=== PATIENT | female | born 1975 | race Caucasian/White ===

== ENCOUNTER 2018-06-01 20:30 | Emergency (ER) | payer OTHER ==
[2018-06-01 20:39] VITALS: BP 144/65; PULSE 91; TEMP 99; BMI 29.2
--- NOTE | 2018-06-01 20:39 | PDOC ---
Rapid Medical Evaluation Time Seen by Provider: 06/01/18 20:36 Medical Evaluation: 06/01/18 20:36 Pt c/o: 150/100 this evening, took her bp meds, pt said she felt dizzy and SOB which now has resolved pt on brief exam: VSS, lcta, rrr, appears anxious pt ordered for: ekg pt to proceed to the ED Discharge Disposition - Diagnosis Blood pressure check - Referrals - Patient Instructions - Post Discharge Activity
[2018-06-01] MEDS ORDERED: KETOROLAC TROMETHAMINE 60 MG/2 ML VIAL IM ONE (21:06)
--- NOTE | 2018-06-01 21:10 | PDOC ---
History of Present Illness - General Chief Complaint: Chest Pain Stated Complaint: CHEST PAIN/HIGH BP Time Seen by Provider: 06/01/18 20:36 - History of Present Illness Initial Comments: 42-year-old female with 3 hours of atraumatic onset of left-sided chest pain. She states she took her blood pressure medicine because she felt her blood pressure was high and became slightly short of breath. Since her arrival in the emergency room her shortness of breath has resolved however she does continue to have left-sided chest pain. Her chest pain does not radiate. 06/01/18 21:08 Past History - Past Medical History Allergies/Adverse Reactions: Allergies Allergy/AdvReac Type Severity Reaction Status Date / Time No Known Allergies Allergy Verified 06/01/18 20:39 Home Medications: Ambulatory Orders Albuterol Sulfate [Proair Hfa] 8.5 gm IH ASDIR 06/01/18 Citalopram Hydrobromide [Celexa -] 20 mg PO DAILY 06/01/18 Losartan Potassium 25 mg PO ASDIR 06/01/18 Montelukast Na [Singulair -] 10 mg PO HS 06/01/18 NK [No Known Home Medication] 06/01/18 Asthma: Yes COPD: No HTN: Yes Psychiatric Problems: Yes (ANXIETY) - Suicide/Smoking/Psychosocial Hx Smoking History: Never smoked Review of Systems - Review of Systems Cardiac (ROS): Yes: Chest Pain *Physical Exam - Vital Signs Last Vital Signs Temp Pulse Resp BP Pulse Ox 99 F 91 H 18 144/65 100 06/01/18 20:34 06/01/18 20:34 06/01/18 20:34 06/01/18 20:34 06/01/18 20:34 - Physical Exam Comments: HEAD: NC/AT EYES: Conjuntiva clear NECK: Supple without adenopathy CARDIAC: S1 S2, there is left-sided costochondral tenderness in the areas of ribs 4 and 5 LUNGS: CTA Full and Equal breath sounds ABDOMEN: Soft NT ND MS: Full ROM in all joints without edema NEUROLOGIC: No gross sensory or motor deficits, NVID SKIN: Normal color and temperature no lesions or rashes 06/01/18 21:09 Medical Decision Making - Medical Decision Making Reviewed her EKG and vital signs she is not tachycardic I do not suspect a PE at this point her chest pain is very reproducible with palpation and is not exacerbated with deep breathing. I do not suspect an CO. I will treat her with Toradol and reevaluate her. 06/01/18 21:09 06/01/18 21:37 Symptoms improved after Toradol. *DC/Admit/Observation/Transfer Diagnosis at time of Disposition: Blood pressure check, Costochondral chest pain - Discharge Dispostion Disposition: HOME Condition at time of disposition: Improved Decision to Admit order: No - Referrals Referrals: Kalyan Downey [Non Staff, Medical] - - Patient Instructions Printed Discharge Instructions: Costochondritis, DI for Costochondritis Additional Instructions: Take Tylenol as directed for pain. Return to the emergency room should symptoms come back. Follow-up with the primary care physician Alis your own or the one I recommended for you in 2-3 days for further evaluation and treatment options. - Post Discharge Activity
[2018-06-01] MEDS ORDERED: KETOROLAC TROMETHAMINE 60 MG/2 ML VIAL ONE (21:12)
--- NOTE | 2018-06-02 15:56 | EKG ---
Test Reason : Blood Pressure : / mmHG Vent. Rate : 071 BPM Atrial Rate : 071 BPM P-R Int : 148 ms QRS Dur : 076 ms QT Int : 376 ms P-R-T Axes : 067 056 055 degrees QTc Int : 408 ms NORMAL SINUS RHYTHM SEPTAL INFARCT , AGE UNDETERMINED ABNORMAL ECG NO PREVIOUS ECGS AVAILABLE Confirmed by FRANCISCO BARNES MD ([id number]) on 06/02/2018 3:56:34 PM Referred By: Confirmed By:FRANCISCO BARNES MD
== END 2018-06-01 21:40 | disposition home or self-care (01) ==
LOC: JERFT 20:30
PROC: 3E0233Z Introduction of Anti-inflammatory into Muscle, Percutaneous Approach (ICD-10-PCS; principal; 2018-06-01)
DX: M94.0 Chondrocostal junction syndrome [Tietze] (principal); I10 Essential (primary) hypertension; J45.909 Unspecified asthma, uncomplicated; F41.9 Anxiety disorder, unspecified
CPT/HCPCS: 93005; 93010; 99281-25

== ENCOUNTER 2018-06-17 10:31 | Emergency (ER) | payer OTHER ==
[2018-06-17 10:42] VITALS: TEMP 98.7; BMI 28.3
--- NOTE | 2018-06-17 10:52 | PDOC ---
History of Present Illness - General Chief Complaint: Palpitations Stated Complaint: PALPITATIONS Time Seen by Provider: 06/17/18 10:49 History Source: Patient - History of Present Illness Presenting Symptoms: Other (this am) Timing/Duration: reports: changing over time Severity/Quality: reports: severe Past History - Past Medical History Allergies/Adverse Reactions: Allergies Allergy/AdvReac Type Severity Reaction Status Date / Time No Known Allergies Allergy Verified 06/17/18 10:42 Home Medications: Ambulatory Orders Albuterol Sulfate [Proair Hfa] 8.5 gm IH ASDIR 06/01/18 Citalopram Hydrobromide [Celexa -] 20 mg PO DAILY 06/01/18 Losartan Potassium 25 mg PO ASDIR 06/01/18 Montelukast Na [Singulair -] 10 mg PO HS 06/01/18 Asthma: Yes COPD: No HTN: Yes Psychiatric Problems: Yes (ANXIETY) - Suicide/Smoking/Psychosocial Hx Smoking History: Never smoked Hx Alcohol Use: No Drug/Substance Use Hx: No Review of Systems - Review of Systems Constitutional: Yes: Weakness. No: Chills, Fever Respiratory: Yes: Shortness of Breath. No: Wheezing Cardiac (ROS): Yes: Palpitations. No: Chest Pain ABD/GI: No: Nausea, Vomiting *Physical Exam - Vital Signs Last Vital Signs Temp Pulse Resp BP Pulse Ox 98.7 F 79 16 117/60 100 06/17/18 10:40 06/17/18 10:40 06/17/18 10:40 06/17/18 10:40 06/17/18 10:40 - Physical Exam General Appearance: Yes: Appropriately Dressed. No: Apparent Distress HEENT: positive: Normal Voice Neck: positive: Supple Respiratory/Chest: positive: Lungs Clear, Normal Breath Sounds. negative: Respiratory Distress Cardiovascular: positive: Regular Rate, S1, S2 Gastrointestinal/Abdominal: positive: Soft. negative: Tender Extremity: negative: Pedal Edema Integumentary: positive: Dry, Warm Neurologic: positive: Fully Oriented, Alert, Normal Mood/Affect ED Treatment Course - LABORATORY CBC & Chemistry Diagram: 06/17/18 11:50 06/17/18 12:25 - ADDITIONAL ORDERS Additional order review: Laboratory Results 06/17/18 06/17/18 12:25 11:25 Sodium 140 Potassium 4.0 Chloride 106 Carbon Dioxide 26 Anion Gap 8 BUN 15 Creatinine 0.7 Creat Clearance w eGFR > 60 Random Glucose 57 L Calcium 9.6 Total Bilirubin 1.1 H AST 11 L ALT 19 Alkaline Phosphatase 62 Creatine Kinase 102 Troponin I < 0.02 B-Natriuretic Peptide 15.9 Total Protein 7.5 Albumin 3.9 TSH 1.63 Serum , Qual Negative 06/17/18 11:50 RBC 4.22 MCV 95.5 MCHC 33.7 RDW 12.9 MPV 8.8 Neutrophils % 67.6 Lymphocytes % 21.1 Monocytes % 8.2 Eosinophils % 1.9 Basophils % 1.2 - RADIOLOGY Radiology Studies Ordered: Category Date Time Status CHEST PA & LAT [RAD] Stat Radiology 06/17/18 11:15 Taken Medical Decision Making - Medical Decision Making 06/17/18 10:51 42 yo F, h/o asthma, HTN, anxiety on celexa, here with palpitations and shortness of breath. Patient states this a.m. while walking to her car, became short of breath with palpitations and felt that she was given a pass out. States she then sat down, but when she got back up symptoms reoccurred, so decided to come to ED. States she now feels weak, but no longer short of breath or having palpitations. Patient states she has never had these symptoms before and that this is different from her anxiety, which usually presents with more "shaking all over" per patient. No known cardiac or thyroid issues. Of note, patient was seen in ED 2 weeks ago for chest pain with negative workup and was diagnosed with costochondritis. No chest pain currently and no diaphoresis, n/v. No known risk factors for DVT/PE See exam SOB w/ palpitations this am Since improved Stable in ER w/ unremarkable exam No obvious RF for DVT/PE and percs out No known cardiac issues and had neg w/u in ED 06/01 after p/w CP ?anxiety component -ekg -cxr -labs including TSH -anticipate dc w/ PMD f/u 06/17/18 11:15 06/17/18 13:32 EKG, CXR and labs unremarkable. On reassessment, patient is asymptomatic. Stable for discharge with PMD follow-up next week *DC/Admit/Observation/Transfer Diagnosis at time of Disposition: Palpitation - Discharge Dispostion Disposition: HOME Condition at time of disposition: Improved - Referrals Referrals: Griffin Razo MD [Staff Physician] - - Patient Instructions Printed Discharge Instructions: DI for Palpitations Additional Instructions: The cause of your symptoms are unclear at this time as your EKG, chest x-ray and labs were unremarkable. You will need to follow-up with Dr Razo of cardiology for further evaluation including a possible Holter monitor. Also follow-up with your PMD In the meantime, if symptoms recur and/or worsen, return to the ER - Post Discharge Activity
[2018-06-17 12:01] LABS: BASO % 1.2 % (0-2.0); EOS % 1.9 % (0-4.5); HEMATOCRIT 40.3 % (32.4-45.2); HEMOGLOBIN 13.6 GM/dL (10.7-15.3); LYMPH % 21.1 % (8-40); MCH 32.2 pg (25.7-33.7); MCHC 33.7 g/dl (32.0-36.0); MEAN CELL VOLUME 95.5 fl (80-96); MEAN PLT VOLUME 8.8 fl (7.5-11.1); MONO % 8.2 % (3.8-10.2); NEUT % 67.6 % (42.8-82.8); PLATELET COUNT 228 K/MM3 (134-434); RBC 4.22 M/mm3 (3.60-5.2); RDW 12.9 % (11.6-15.6); WHITE BLOOD COUNT 7.8 K/mm3 (4.0-10.0)
[2018-06-17 13:28] LABS: ALBUMIN 3.9 g/dl (3.4-5.0); ALK PHOS 62 U/L (45-117); ANION GAP 8 MMOL/L (8-16); BILIRUBIN,TOTAL 1.1 mg/dL (0.2-1); BLOOD UREA NITROGEN 15 mg/dL (7-18); CALCIUM 9.6 mg/dL (8.5-10.1); CHLORIDE 106 mmol/L (98-107); CO2 26 mmol/L (21-32); CREATININE 0.7 mg/dL (0.55-1.3); GLUCOSE,RANDOM 57 mg/dL (74-106); N-TERMINAL BNP 15.9 pg/ml (5-125); SGOT/AST 11 U/L (15-37); SGPT/ALT 19 U/L (13-61); SODIUM 140 mmol/L (136-145); TOT PROT 7.5 g/dl (6.4-8.2)
--- NOTE | 2018-06-17 14:33 | PDOC ---
*Physical Exam - Vital Signs Last Vital Signs Temp Pulse Resp BP Pulse Ox 98.7 F 79 16 117/60 100 06/17/18 10:40 06/17/18 10:40 06/17/18 10:40 06/17/18 10:40 06/17/18 10:40 - Physical Exam Comments: 06/19/18 02:45 42-year-old female presents to the ER complaining of short of breath/ palpitations and syncope sensation. No history of anxiety/ No thyroid issues. Patient was seen in the ER 2 weeks ago for chest pain Diagnosed with costochondritis Patient denies headache, dizziness, lightheadedness, chest pain, nausea/vomiting Labs: EKG, TSH, CBC, chemistry, chest x-ray Patient sent to the emergency department for a for evaluation ED Treatment Course - LABORATORY CBC & Chemistry Diagram: 06/17/18 11:50 06/17/18 12:25 - ADDITIONAL ORDERS Additional order review: Laboratory Results 06/17/18 06/17/18 12:25 11:25 Sodium 140 Potassium 4.0 Chloride 106 Carbon Dioxide 26 Anion Gap 8 BUN 15 Creatinine 0.7 Creat Clearance w eGFR > 60 Random Glucose 57 L Calcium 9.6 Total Bilirubin 1.1 H AST 11 L ALT 19 Alkaline Phosphatase 62 Creatine Kinase 102 Troponin I < 0.02 B-Natriuretic Peptide 15.9 Total Protein 7.5 Albumin 3.9 TSH 1.63 Serum , Qual Negative 06/17/18 11:50 RBC 4.22 MCV 95.5 MCHC 33.7 RDW 12.9 MPV 8.8 Neutrophils % 67.6 Lymphocytes % 21.1 Monocytes % 8.2 Eosinophils % 1.9 Basophils % 1.2 *DC/Admit/Observation/Transfer Diagnosis at time of Disposition: Palpitation - Discharge Dispostion Disposition: HOME Condition at time of disposition: Improved - Referrals Referrals: Griffin Razo MD [Staff Physician] - - Patient Instructions Printed Discharge Instructions: DI for Palpitations Additional Instructions: The cause of your symptoms are unclear at this time as your EKG, chest x-ray and labs were unremarkable. You will need to follow-up with Dr Razo of cardiology for further evaluation including a possible Holter monitor. Also follow-up with your PMD In the meantime, if symptoms recur and/or worsen, return to the ER - Post Discharge Activity Forms/Work/School Notes: Back to School
[2018-06-17 14:38] VITALS: BP 138/74; PULSE 71
--- NOTE | 2018-06-18 15:39 | EKG ---
Test Reason : Blood Pressure : / mmHG Vent. Rate : 068 BPM Atrial Rate : 068 BPM P-R Int : 142 ms QRS Dur : 084 ms QT Int : 362 ms P-R-T Axes : 064 059 057 degrees QTc Int : 384 ms NORMAL SINUS RHYTHM LOW VOLTAGE QRS BORDERLINE ECG WHEN COMPARED WITH ECG OF 01-JUN-2018 20:41, NO SIGNIFICANT CHANGE WAS FOUND Confirmed by MD Aparicio Daniel ([id number]) on 06/18/2018 3:39:23 PM Referred By: Confirmed By:Adrian Aparicio MD
== END 2018-06-17 14:40 | disposition home or self-care (01) ==
LOC: JER 10:31
DX: R00.2 Palpitations (principal); I10 Essential (primary) hypertension; J45.909 Unspecified asthma, uncomplicated; F41.9 Anxiety disorder, unspecified
CPT/HCPCS: 36415; 71046-TC-FY; 80053; 82550; 83880; 84443; 84484; 84703; 85025; 93005; 93010; 99283-25

== ENCOUNTER 2019-07-07 21:42 | Emergency (ER) | payer OTHER ==
[2019-07-07 22:02] VITALS: BP 148/85; PULSE 70; TEMP 98.2; BMI 30.7
[2019-07-08] MEDS ORDERED: MECLIZINE HCL 25 MG TABLET (FP) PO ONE (00:06)
--- NOTE | 2019-07-08 00:13 | PDOC ---
History of Present Illness - General History Source: Patient - History of Present Illness Initial Comments: 07/08/19 00:07 43 yo F PMH HTN, asthma, tubal ligation, anxiety, seizure disorder on Keppra and Topamax (last seizure 1 month ago), presenting with dizziness. Patient states that it began this afternoon, "room spinning", triggered by moving her head, lasting seconds at a time, associated with nausea without vomiting. States that she initially was unable to walk. Specifically states that this does not feel the same as her seizures. Further reports that she applied an ice pack to her forehead and now feels better. Specifically denies CP, SOB, abd pain, urinary symptoms, constipation/diarrhea, fevers/chills, ALTMAN. Patient initially stated that she wanted to leave without getting any testing, and repeatedly declares that she needs to be at work at 0700. However, she ultimately decided that she does want testing and lab work. LMP now. <Kristin Wright - Last Filed: 07/08/19 01:37> <Blank Hummel - Last Filed: 07/08/19 01:41> - General Chief Complaint: Pain Stated Complaint: NAUSEA/VOMITING Time Seen by Provider: 07/07/19 23:52 Past History - Past Medical History Asthma: Yes COPD: No HTN: Yes Psychiatric Problems: Yes (ANXIETY) - Immunization History Immunization Up to Date: No - Psycho Social/Smoking Cessation Hx Smoking History: Never smoked Information on smoking cessation initiated: No Hx Alcohol Use: No Drug/Substance Use Hx: No <Kristin Wright - Last Filed: 07/08/19 01:37> <Blank Hummel - Last Filed: 07/08/19 01:41> - Past Medical History Allergies/Adverse Reactions: Allergies Allergy/AdvReac Type Severity Reaction Status Date / Time No Known Allergies Allergy Verified 07/07/19 23:16 Home Medications: Ambulatory Orders Albuterol Sulfate [Proair Hfa] 8.5 gm IH ASDIR 06/01/18 Citalopram Hydrobromide [Celexa -] 20 mg PO DAILY 06/01/18 Losartan Potassium 25 mg PO ASDIR 06/01/18 Montelukast Na [Singulair -] 10 mg PO HS 06/01/18 Meclizine HCl 25 mg PO QID PRN 3 Days #12 tablet 07/08/19 *Physical Exam - Vital Signs Last Vital Signs Temp Pulse Resp BP Pulse Ox 98.2 F 70 17 148/85 100 07/07/19 21:58 07/07/19 21:58 07/07/19 21:58 07/07/19 21:58 07/07/19 21:58 - Physical Exam Comments: 07/08/19 00:11 Gen: NAD, well-developed, well-nourished Neuro: b/l horizontal nystagmus, EOMI, PERRLA, CN II-XII intact, FTN intact, AAOX4 HEENT: atraumatic, normocephalic Neck: supple, trachea midline CV: regular rate, regular rhythm Pulm: CTA b/l, no wheezing Abd: soft, non-distended, non-tender MSK: full ROM, intact pulses Extr: no edema, no deformities Skin: warm, dry <Kristin Wright - Last Filed: 07/08/19 01:37> - Vital Signs Last Vital Signs Temp Pulse Resp BP Pulse Ox 98.2 F 70 17 148/85 100 07/07/19 21:58 07/07/19 21:58 07/07/19 21:58 07/07/19 21:58 07/07/19 21:58 <Blank Hummel - Last Filed: 07/08/19 01:41> Heart Score/ECG Review #1 07/08/19 01:41 Twelve-lead EKG was performed and reviewed by me. Sinus bradycardia, rate 55. Normal axis and intervals. No ST elevations or T wave inversions. <Blank Hummel - Last Filed: 07/08/19 01:41> ED Treatment Course - LABORATORY CBC & Chemistry Diagram: 07/08/19 00:00 07/08/19 00:00 <Kristin Wright - Last Filed: 07/08/19 01:37> - LABORATORY CBC & Chemistry Diagram: 07/08/19 00:00 07/08/19 00:00 - ADDITIONAL ORDERS Additional order review: Laboratory Results 07/08/19 07/08/19 07/08/19 00:00 00:00 00:00 Sodium 142 Potassium 4.3 Chloride 107 Carbon Dioxide 30 Anion Gap 4 L BUN 10.4 Creatinine 0.8 Est GFR (CKD-EPI)AfAm 106.13 Est GFR (CKD-EPI)NonAf 91.57 Random Glucose 86 Calcium 8.9 Total Bilirubin 0.5 AST 22 ALT 21 Alkaline Phosphatase 78 Total Protein 7.0 Albumin 3.8 Urine Color Yellow Urine Appearance Clear Urine pH 6.5 Ur Specific [place] 1.008 L Urine Protein Negative Urine Glucose (UA) Negative Urine Ketones Negative Urine Blood 2+ H Urine Nitrite Negative Urine Bilirubin Negative Urine Urobilinogen 0.2 Ur Leukocyte Esterase Trace Urine WBC (Auto) 1 Urine RBC (Auto) 6 Urine Casts (Auto) 1 U Epithel Cells (Auto) 0.5 Urine Bacteria (Auto) 0.7 Urine HCG, Qual Negative 07/08/19 00:00 RBC 3.96 MCV 96.0 MCHC 33.2 RDW 12.6 MPV 9.3 Neutrophils % 68.3 Lymphocytes % 21.0 Monocytes % 5.9 Eosinophils % 3.6 D Basophils % 1.2 - Medications Given in the ED: ED Medications Discontinued Medications Generic Name Dose Route Start Last Admin Trade Name Johnieq PRN Reason Stop Dose Admin Meclizine HCl 25 mg 07/08/19 00:06 07/08/19 00:31 Antivert - PO 07/08/19 00:07 25 mg ONCE ONE Administration <Blank Hummel - Last Filed: 07/08/19 01:41> Medical Decision Making - Medical Decision Making 07/08/19 00:14 Concerning for BPPV v UTI. - CBC - CMP - UA/UC - upreg - meclizine 25 po - reassess - likely dc home with short course of meclizine 07/08/19 00:45 Patient reassessed, feeling much better. EKG sinus bradycardia 55. 07/08/19 01:30 CMP wnl. Will dc with short course of meclizine. <Kristin Wright - Last Filed: 07/08/19 01:37> Discharge - Discharge Information Problems reviewed: Yes - Admission No <Kristin Wright - Last Filed: 07/08/19 01:37> <Blank Hummel - Last Filed: 07/08/19 01:41> - Discharge Information Clinical Impression/Diagnosis: Vertigo Condition: Improved Disposition: HOME - Additional Discharge Information Prescriptions: Meclizine HCl 25 mg PO QID PRN 3 Days #12 tablet PRN Reason: Nausea And/Or Vomiting - Patient Discharge Instructions Patient Printed Discharge Instructions: DI for Benign Paroxysmal Positional Vertigo Additional Instructions: You were seen with dizziness. Your labs and EKG were unconcerning, and your physical exam was consistent with vertigo. You also felt better with meclizine. Please take meclizine every 6 hours as needed for dizziness. Follow up with your primary care doctor within one week. Also, make an appointment with your neurologist within 1-2 weeks. Make sure you take your Keppra as prescribed. Return to the ED if you develop worsening dizziness or weakness or any new, worsening, or concerning symptoms. - Post Discharge Activity Work/Back to School Note: Back to Work
[2019-07-08] MEDS ORDERED: MECLIZINE HCL 25 MG TABLET (FP) ONE (00:23)
[2019-07-08 00:53] LABS: EPI CELLS 0.5 /HPF (0-5/HPF); HYALINE CASTS 1 /lpf (0-8); PH,URINE 6.5 (5.0-8.0); URINE APPEARANCE CLEAR; URINE BACTERIA 0.7 /hpf (NEGATIVE); URINE BILIRUBIN NEGATIVE (NEGATIVE); URINE COLOR YELLOW; URINE GLUCOSE (UA) NEGATIVE (NEGATIVE); URINE KETONE NEGATIVE (NEGATIVE); URINE LEUK ESTERASE TRACE (NEGATIVE); URINE NITRITE NEGATIVE (NEGATIVE); URINE PROTEIN NEGATIVE (NEGATIVE); URINE RBC 6 /hpf (0-4); URINE UROBILINOGEN 0.2 mg/dL (0.2-1.0); URINE WBC 1 /hpf (0-5)
[2019-07-08 00:54] LABS: BASO % 1.2 % (0-2.0); EOS % 3.6 % (0-4.5); HEMOGLOBIN 12.6 GM/dL (10.7-15.3); MCH 31.9 pg (25.7-33.7); MCHC 33.2 g/dl (32.0-36.0); MEAN PLT VOLUME 9.3 fl (7.5-11.1); MONO % 5.9 % (3.8-10.2); NEUT % 68.3 % (42.8-82.8); PLATELET COUNT 234 K/MM3 (134-434); RBC 3.96 M/mm3 (3.60-5.2); RDW 12.6 % (11.6-15.6); WHITE BLOOD COUNT 9.1 K/mm3 (4.0-10.0)
[2019-07-08 01:29] LABS: ALBUMIN 3.8 g/dl (3.4-5.0); BILIRUBIN,TOTAL 0.5 mg/dL (0.2-1); BLOOD UREA NITROGEN 10.4 mg/dL (7-18); CALCIUM 8.9 mg/dL (8.5-10.1); CREATININE 0.8 mg/dL (0.55-1.3); POTASSIUM 4.3 mmol/L (3.5-5.1)
--- NOTE | 2019-07-08 01:38 | PDOC ---
Documentation entered by Eduar Aragon SCRIBE, acting as scribe for Blank Hummel MD. Blank Hummel MD: This documentation has been prepared by the Margo cao Xhesika, SCRIBE, under my direction and personally reviewed by me in its entirety. I confirm that the documentation accurately reflects all work, treatment, procedures, and medical decision making performed by me. Attending Attestation - Resident Resident Name: Kristin Wright - ED Attending Attestation I have performed the following: I have examined & evaluated the patient, The case was reviewed & discussed with the resident, I agree w/resident's findings & plan, Exceptions are as noted - HPI HPI: 07/08/19 00:53 The patient is a 43 year old female with a significant PMH of tubal ligation, HTN, asthma, anxiety, seizure disorder (on Keppra and Topamax, last seizure 1 month ago), who presents to the emergency department for dizziness since this afternoon. Patient describes the dizziness as room spinning, lasting a couple of seconds, was not able to walk, associated with nausea, worsened with head movements, specifically looking down and improved when placing an ice-pack on her head. Patient notes she is currently on her menstrual period. At this time, she reports resolution of sxs. She states similar sxs on and off for years, but has never sought care before. The patient denies chest pain, shortness of breath, headache, visual sxs, focal weakness/numbness. Denies fever, chills, cough, vomiting, diarrhea and constipation. Denies dysuria, frequency, urgency and hematuria. Allergies: NKDA Past surgical history: tubal ligation PCP: Jeffy Brown - Physicial Exam PE: 07/08/19 00:54 GENERAL: Awake, alert, and fully oriented, in no acute distress HEAD: No signs of trauma EYES: PERRLA, EOMI, sclera anicteric, conjunctiva clear ENT: Oropharynx clear without exudates. Moist mucosa NECK: Normal ROM, supple, no lymphadenopathy, JVD, or masses LUNGS: Breath sounds equal, clear to auscultation bilaterally. No wheezes, and no crackles HEART: Regular rate and rhythm, normal S1 and S2, no murmurs, rubs or gallops ABDOMEN: Soft, nontender, normoactive bowel sounds. No guarding, no rebound. No masses EXTREMITIES: Normal range of motion, no edema. No clubbing or cyanosis. No cords , erythema, or tenderness BACK: No midline spinal tenderness in cervical/thoracic/lumbar region NEUROLOGICAL: Normal speech, cranial nerves intact, negative pronator drift, 5/ 5 strength in all 4 extremities, normal sensation to light touch in all 4 extremities, normal cerebellar exam, normal gait, normal tone SKIN: Warm, Dry, normal turgor, no rashes or lesions noted. - Medical Decision Making 07/08/19 01:35 43yo F presents to the ED with resolved episodes of positional Vertigo. Vitals within normal limits. Exam within normal limits, patient is intact neurologically. Most likely BPPV, as symptoms are positional, intermittent for years, associated with no headache, and with normal neurological examination. Patient is currently asymptomatic after meclizine, clinically stable and very well-appearing, ambulating in the ED with steady gait. Plan to discharge patient with a course of meclizine and follow-up with neurology. I discussed the physical exam findings, ancillary test results and final diagnoses with the patient. I answered all of the patient's questions. The patient was satisfied with the care received and felt comfortable with the discharge plan and treatment plan. The patient will call their primary care physician within 24 hours to arrange follow-up and will return to the Emergency Department with any new, persistent or worsening symptoms.
--- NOTE | 2019-07-08 14:56 | EKG ---
Test Reason : Blood Pressure : / mmHG Vent. Rate : 055 BPM Atrial Rate : 055 BPM P-R Int : 154 ms QRS Dur : 086 ms QT Int : 414 ms P-R-T Axes : 066 031 031 degrees QTc Int : 396 ms SINUS BRADYCARDIA LOW VOLTAGE QRS BORDERLINE ECG WHEN COMPARED WITH ECG OF 17-JUN-2018 10:36, NO SIGNIFICANT CHANGE WAS FOUND Confirmed by Natalia Dillard ([id number]) on 07/08/2019 2:56:12 PM Referred By: Confirmed By:Natalia Dillard
== END 2019-07-08 01:44 | disposition home or self-care (01) ==
LOC: JER 21:42
DX: H81.10 Benign paroxysmal vertigo, unspecified ear (principal); I10 Essential (primary) hypertension; J45.909 Unspecified asthma, uncomplicated; F41.9 Anxiety disorder, unspecified
CPT/HCPCS: 36415; 80053; 81003; 84703; 85025; 87086; 93005; 93010; 99283-25

== ENCOUNTER 2019-08-02 16:06 | Emergency (ER) | payer OTHER ==
--- NOTE | 2019-08-02 16:10 | PDOC ---
Rapid Medical Evaluation Time Seen by Provider: 08/02/19 16:07 Medical Evaluation: Allergies Allergy/AdvReac Type Severity Reaction Status Date / Time No Known Allergies Allergy Verified 07/07/19 23:16 08/02/19 16:08 CC: "My pressure is high." took additional dose of losaartan. Warmth to chest PE: No focal findings. Orders: ekg, labs Patient will proceed to ER for continued evaluation. Discharge Disposition - Diagnosis Palpitation - Referrals - Patient Instructions - Post Discharge Activity
[2019-08-02 16:12] VITALS: BP 162/81; PULSE 84; TEMP 98.4; BMI 31.2
[2019-08-02 16:43] LABS: EOS % 2.6 % (0-4.5); HEMATOCRIT 39.2 % (32.4-45.2); HEMOGLOBIN 13.4 GM/dL (10.7-15.3); LYMPH % 28.2 % (8-40); MCH 32.5 pg (25.7-33.7); MCHC 34.1 g/dl (32.0-36.0); MEAN CELL VOLUME 95.3 fl (80-96); MEAN PLT VOLUME 9.7 fl (7.5-11.1); MONO % 7.4 % (3.8-10.2); NEUT % 60.8 % (42.8-82.8); PLATELET COUNT 240 K/MM3 (134-434); RBC 4.11 M/mm3 (3.60-5.2); RDW 12.7 % (11.6-15.6); WHITE BLOOD COUNT 9.4 K/mm3 (4.0-10.0)
[2019-08-02 16:46] LABS: EPI CELLS 0.8 /HPF (0-5/HPF); HYALINE CASTS 0 /lpf (0-8); PH,URINE 6.5 (5.0-8.0); URINE APPEARANCE CLEAR; URINE BACTERIA 27.5 /hpf (NEGATIVE); URINE BILIRUBIN NEGATIVE (NEGATIVE); URINE COLOR YELLOW; URINE GLUCOSE (UA) NEGATIVE (NEGATIVE); URINE KETONE NEGATIVE (NEGATIVE); URINE LEUK ESTERASE TRACE (NEGATIVE); URINE NITRITE NEGATIVE (NEGATIVE); URINE PROTEIN NEGATIVE (NEGATIVE); URINE RBC 2 /hpf (0-4); URINE UROBILINOGEN 0.2 mg/dL (0.2-1.0); URINE WBC 3 /hpf (0-5)
[2019-08-02 17:10] LABS: ALBUMIN 3.9 g/dl (3.4-5.0); ALK PHOS 65 U/L (45-117); ANION GAP 8 MMOL/L (8-16); BILIRUBIN,TOTAL 1.4 mg/dL (0.2-1); BLOOD UREA NITROGEN 16.9 mg/dL (7-18); CALCIUM 8.8 mg/dL (8.5-10.1); CHLORIDE 101 mmol/L (98-107); CO2 24 mmol/L (21-32); GLUCOSE,RANDOM 87 mg/dL (74-106); POTASSIUM 3.6 mmol/L (3.5-5.1); SGOT/AST 14 U/L (15-37); SGPT/ALT 20 U/L (13-61); SODIUM 133 mmol/L (136-145); TOT PROT 7.2 g/dl (6.4-8.2)
--- NOTE | 2019-08-02 17:22 | PDOC ---
Attending Attestation - Resident Resident Name: Thanh Schultz - ED Attending Attestation I have performed the following: I have examined & evaluated the patient, The case was reviewed & discussed with the resident, I agree w/resident's findings & plan - HPI HPI: 08/02/19 17:20 43 YOF with h/o HTN presenting with elevated bp and sensation of warmth in her chest/discomfort took extra lisinopril today +stressors, recent of friend from [place] and daughter who had suicide attempt 08/02/19 18:01 - Physicial Exam PE: 08/02/19 17:20 Agree with the resident's HPI and PE as documented in the electronic medical record. NAD, well appearing, EOMI, PERRL, nl conjunctiva, anicteric; neck supple. lungs clear, RRR, abdomen soft nontender. No rebound, no guarding. Back nontender. BOCANEGRA x4, no focal neuro deficits. No peripheral edema. normal color for ethnicity , WWP. - Medical Decision Making 08/02/19 17:20 Vital Signs Temp Pulse Resp BP Pulse Ox 98.4 F 84 19 162/81 97 08/02/19 16:09 08/02/19 16:09 08/02/19 16:09 08/02/19 16:09 08/02/19 16:09 DDx chest pain: ACS, coronary vasospasm, NSTEMI, arrhythmia, unstable angina, PE , dissection, PUD, esophageal spasm, GERD, gastritis, costochondritis, pneumonia , pleurisy, pericarditis/myocarditis. dehydration, electrolyte/metabolic derangements. Considered but clinically doubt based on HPI and PE: Low suspicion for pulmonary embolism or dissection. Chest pain negative: No evidence of ACS, pericarditis, myocarditis, pulmonary embolism, pneumothorax, pneumonia, Zoster, or esophageal perforation. Historically not abrupt in onset, tearing or ripping, pulses symmetric, no evidence of aortic dissection. EKG normal sinus rhythm at 76 bpm, no interval abnormalities, narrow QRS, ST and T wave segments and morphology normal. Chest pain HEART score 1 which denotes Low risk and probability for ACS, less than 1% risk for MACE at 4-6 wks CXR clear. no e/o infection, edema or infiltrate, cardiac silhouette wnl. BP here has improved, downtrended. mentating, feels improved and instructed to f /u pmd with BP fluctuations. Pt to be discharged in stable condition. Patient and family made aware of clinical impression, treatment recommendations and disposition plan, return precautions discussed (including but not limited to new or persistent/worsening symptoms, pain, fevers, or signs of infection, chest pain, respiratory distress , inability to tolerate oral intake, dehydration, syncope, or neurologic changes ). Follow up with PMD as recommended, follow up information provided, take medications as instructed for duration of time. continue with supportive care, avoid triggers and precipitants. All questions answered to patient's satisfaction and expressed understanding and comfort with this. At the time of discharge, the patient is alert, clinically improved, tolerating po and verbalizes understanding of instructions, satisfied with the care received and felt comfortable with the plan. Patient does not suffer from an acute life- threatening medical condition at this time and is safe for outpatient follow- up. 08/02/19 17:22 08/04/19 10:44 Heart Score/ECG Review - History History: Slightly suspicious - Electrocardiogram EKG: Normal - Age Age: </= 45 - Risk Factors Risk Factors Heart Score: Yes Hx Hypertension Based on the list above the patient has:: 1-2 risk factors - Troponin Troponin: </= normal limit - Score Heart Score - Total: 1 #1 ECG reviewed & interpreted by me at: 16:15 General ECG Interpretation: Sinus Rhythm, Normal Rate, Normal Intervals Compared to previous ECG there are: No significant change 08/02/19 17:21 EKG normal sinus rhythm at 76 bpm, no interval abnormalities, narrow QRS, ST and T wave segments and morphology normal.unchanged from prior.
--- NOTE | 2019-08-02 17:29 | PDOC ---
History of Present Illness - General Chief Complaint: Blood Pressure Problem Stated Complaint: HIGH BLOODPRESSURE Time Seen by Provider: 08/02/19 16:07 History Source: Patient, Old Records Exam Limitations: No Limitations - History of Present Illness Initial Comments: HPI: 43 y/o female presenting to [facility] ER complaining of burning sensation throughout her body, intermittent periods of palpitations, and intermittent SOB for the past several days. Denies chest pain, noisy breathing, or bilateral lower extremity swelling. Episodes of SOB improve after using PRN inhaler. Became concerned today because her blood pressure was high around noon today, so she took a second dose of her Losartan. Was evaluated at another hospital ED yesterday. Has already scheduled an appointment with her PCP for tomorrow. Reports recent significantly increased life stress with a suicide attempt by her daughter one month ago, the of a close friend last week, and the unexpected of a coworker this weekend. Medical Hx: - HTN - Seizures managed w/ Keppra - Anxiety managed with Citalopram (Celexa) - Asthma managed with PRN inhaler Surgical Hx: - BTL Review of Systems: In addition to that documented in the HPI above, the additional ROS was obtained : Constitutional- Denies fevers or chills Head- Denies vision changes ENMT- Denies sore throat CV- Denies chest pain Resp- Denies coughing or sneezing GI- Denies vomiting or diarrhea - Denies painful urination, hematuria MSK- Denies recent trauma Skin- Denies new rashes Neuro- Endorses generalized weakness. Denies new numbness or tingling Endocrine- Denies polyuria Heme- Denies bleeding or bruising Physical Examination: Constitutional- Well-developed, well-nourished adult female in no acute distress or obvious discomfort. Found semi-fowlers on hospital bed. Answered all questions appropriately and completely. Head- Normocephalic. No obvious external signs of trauma. Neck- Supple, trachea is midline. Cardiovascular / Chest- Regular rate and regular rhythm. No murmur, rubs, clicks , or gallops. Peripheral pulses- radial pulses full. No pretibial edema. Respiratory- Breathing unlabored. Equal chest rise and fall. Clear to auscultation bilaterally. No stridor, no wheezing, no rhonchi. Gastrointestinal- abdomen is soft, non-tender, non-distended. Neuro- Alert and oriented x4. Moving all four extremities spontaneously. Skin- Warm, dry, and intact. Psych- Affect- initially calm, but pt became extremely tearful when asked directly about recent life events. Mood- normal. Speech was non-labored, non- pressured. MDM: *Reviewed vital signs, nursing notes, and prior visit documentation (if available). 43 y/o female presenting with intermittent generalized burning, palpitations, and shortness of breath in the setting of significant life stress. Afebrile. Vitals unremarkable for hypotension or tachycardia. Physical exam as described above. EKG unremarkable for ischemic findings. Troponin not elevated. Will not trend as events have been occurring for greater than 3 hours. Electrolytes within normal limits. Suspect symptoms are secondary to life events in setting of known anxiety disorder. Ordered Xanax for symptom relief. Discussed labs and xrays results with pt . Answered all questions. Provided return precautions. Pt expressed verbal understanding and agreement with plan to discharge home with outpatient follow up. Provided copies of todays results. Will f/u at appointment tomorrow. Thanh Schultz M.D., PGY2 Emergency Medicine Resident Past History - Past Medical History Allergies/Adverse Reactions: Allergies Allergy/AdvReac Type Severity Reaction Status Date / Time No Known Allergies Allergy Verified 08/02/19 16:11 Home Medications: Ambulatory Orders Albuterol Sulfate [Proair Hfa] 8.5 gm IH ASDIR 06/01/18 Citalopram Hydrobromide [Celexa -] 20 mg PO DAILY 06/01/18 Losartan Potassium 25 mg PO ASDIR 06/01/18 Montelukast Na [Singulair -] 10 mg PO HS 06/01/18 Meclizine HCl 25 mg PO QID PRN 3 Days #12 tablet 07/08/19 Asthma: Yes COPD: No HTN: Yes Psychiatric Problems: Yes (ANXIETY) - Immunization History Immunization Up to Date: No - Psycho Social/Smoking Cessation Hx Smoking History: Never smoked Information on smoking cessation initiated: No Hx Alcohol Use: No Drug/Substance Use Hx: No *Physical Exam - Vital Signs Last Vital Signs Temp Pulse Resp BP Pulse Ox 98.4 F 84 19 162/81 97 08/02/19 16:09 08/02/19 16:09 08/02/19 16:09 08/02/19 16:09 08/02/19 16:09 ED Treatment Course - LABORATORY CBC & Chemistry Diagram: 08/02/19 16:24 08/02/19 16:24 - ADDITIONAL ORDERS Additional order review: Laboratory Results 08/02/19 08/02/19 08/02/19 16:24 16:24 16:24 Sodium 133 L Potassium 3.6 Chloride 101 Carbon Dioxide 24 Anion Gap 8 BUN 16.9 Creatinine 1.0 Est GFR (CKD-EPI)AfAm 81.04 Est GFR (CKD-EPI)NonAf 69.92 Random Glucose 87 Calcium 8.8 Magnesium 2.0 Total Bilirubin 1.4 H AST 14 L ALT 20 Alkaline Phosphatase 65 Creatine Kinase 120 Troponin I < 0.02 Total Protein 7.2 Albumin 3.9 Urine Color Yellow Urine Appearance Clear Urine pH 6.5 Ur Specific Braggs 1.009 L Urine Protein Negative Urine Glucose (UA) Negative Urine Ketones Negative Urine Blood Trace Urine Nitrite Negative Urine Bilirubin Negative Urine Urobilinogen 0.2 Ur Leukocyte Esterase Trace Urine WBC (Auto) 3 Urine RBC (Auto) 2 Urine Casts (Auto) 0 U Epithel Cells (Auto) 0.8 Urine Bacteria (Auto) 27.5 Urine HCG, Qual Negative 08/02/19 16:24 RBC 4.11 MCV 95.3 MCHC 34.1 RDW 12.7 MPV 9.7 Neutrophils % 60.8 Lymphocytes % 28.2 D Monocytes % 7.4 Eosinophils % 2.6 Basophils % 1.0 Discharge - Discharge Information Problems reviewed: Yes Clinical Impression/Diagnosis: Palpitation, Burning sensation Hypertension Qualifiers: Hypertension type: unspecified Qualified Code(s): I10 - Essential (primary) hypertension Condition: Good Disposition: HOME - Admission No - Follow up/Referral Referrals: Adam Arce [Non Staff, Medical] - - Patient Discharge Instructions Patient Printed Discharge Instructions: DI for High Blood Pressure, DI for Anxiety -- Adult Additional Instructions: You were seen today for a burning sensation and palpitations. Your EKG, Xray, and blood work were normal today. Your symptoms are likely related to the increased life stress you have experienced over the past month. Do not drive tonight because you were given Xanax. Follow up with your primary care doctor at your previously scheduled appointment tomorrow. A copy of todays results are attached to this packet. Take it to the appointment so your doctor can review them. Be sure to talk about your episodes of high blood pressure. It may be time to change your medication. Stop taking extra doses without first talking to your doctor. This can be dangerous, or even deadly! Go to the nearest emergency department if your condition worsens or you feel like you need additional emergency evaluation. Print Language: JAPANESE - Post Discharge Activity
[2019-08-02] MEDS ORDERED: ALPRAZolam 0.25 MG TABLET PO ONE (18:03)
[2019-08-02] MEDS ORDERED: ALPRAZolam 0.25 MG TABLET ONE (18:19)
--- NOTE | 2019-08-03 11:53 | EKG ---
Test Reason : Blood Pressure : / mmHG Vent. Rate : 076 BPM Atrial Rate : 076 BPM P-R Int : 122 ms QRS Dur : 084 ms QT Int : 370 ms P-R-T Axes : 018 048 053 degrees QTc Int : 416 ms NORMAL SINUS RHYTHM NORMAL ECG WHEN COMPARED WITH ECG OF 08-JUL-2019 00:59, NO SIGNIFICANT CHANGE WAS FOUND Confirmed by FRANCISCO BARNES MD ([id number]) on 08/03/2019 11:53:31 AM Referred By: Confirmed By:FRANCISCO BARNES MD
== END 2019-08-02 18:25 | disposition home or self-care (01) ==
LOC: JER 16:06
DX: I10 Essential (primary) hypertension (principal); R00.2 Palpitations; R20.8 Other disturbances of skin sensation; G40.909 Epilepsy, unspecified, not intractable, without status epilepticus; F41.9 Anxiety disorder, unspecified; J45.909 Unspecified asthma, uncomplicated; Z98.51 Tubal ligation status
CPT/HCPCS: 36415; 71046-TC-FY; 80053; 81003; 82550; 83735; 84484; 84703; 85025; 93005; 93010; 99282-25